=== PATIENT | female | born 1955 | race Caucasian/White ===

== ENCOUNTER 2019-09-24 15:21 | Outpatient (REF) | payer BC, SELFPAY ==
--- NOTE | 2019-09-24 09:50 | PAPNONF_PTH ---
PATIENT: Kalli Allen LOC: [facility] U#:[id number] AGE/SX: 63/F ROOM: RE09/24/[address]: Radha Sena : 1955 BED: DIS: 09/24/2019 SPEC #: [id number] RECD: 09/25/19 12:45 STATUS: LILLIANA REQ #: [id number] YUMIKO: 09/24/19 09:[address]: Radha Sena DEPT: [facility] Cytology RECD BY: Sondra Woo ENTERED: 09/25/19 12:45 SP TYPE: IGNACIO MCDOWELL DR: dEie Sanchez Tissues: 1 - BODY FLUID CYTO(NOT S/U/N/EM)[facility] Procedures: BODY FLUID CYTO(NOT SPU/UR/NIP/ENDOM)[facility] Comments: [id number] (TOTAL VOLUME = 20 ml's) (20 ml's URINE & 20 ml's CYTOLYT ADDED)
--- NOTE | 2019-09-24 10:15 | PAPFT_PTH ---
PATIENT: Kalli Allen LOC: [facility]#:[id number] AGE/SX: 63/F ROOM: RE09/24/[address]: Radha Sena : 1955 BED: DIS: 09/24/2019 SPEC #: [id number] RECD: 09/25/19 12:44 STATUS: LILLIANA RESasha #: [id number] YUMIKO: 09/24/19 10:[address]: Radha Sena DEPT: [facility] Cytology RECD BY: Sondra Woo ENTERED: 09/25/19 12:44 SP TYPE: PAPFT OTHR DR: Edie Sanchez Tissues: 1 - CX/ENDOCX FOR PAP SMEARS Procedures: PAP THIN PREP/[facility] Screening HPV DNA PROBE Comments: [id number]
[2019-09-24 19:47] LABS: Calculated LDL 196 mg/dL (<100); Cholesterol 303 mg/dL (<200); HDL Cholesterol 70 mg/dL (40-60); Triglyceride 187 mg/dL (<150)
[2019-09-24 19:52] LABS: Hemoglobin A1C 5.8 % (3.8-5.6)
== END 2019-09-24 15:41 ==
LOC: NCHCN 15:21
PROVIDERS: PCP Physician Assistant Medical; Visit Provider Nurse Practitioner Family
DX: R73.03 Prediabetes (principal); Z13.220 Encounter for screening for lipoid disorders; R31.9 Hematuria, unspecified; Z12.4 Encounter for screening for malignant neoplasm of cervix; Z11.51 Encounter for screening for human papillomavirus (HPV); R82.998 Other abnormal findings in urine
CPT/HCPCS: 80061; 88142; 83036; 87624; 88104

== ENCOUNTER 2020-09-08 12:00 | Outpatient (REF) | payer BC, SELFPAY ==
--- NOTE | 2020-09-08 15:45 | SKI_PTH ---
PATIENT: Kalli Allen LOC: [facility] U#:[id number] AGE/SX: 64/F ROOM: RE09/08/[address]: Shantell Benites : 1955 BED: DIS: 09/08/2020 SPEC #: [id number] RECD: 09/09/20 12:46 STATUS: LILLIANA REQ #: [id number] YUMIKO: 09/08/20 15:[address]: Shantell Benites DEPT: Surgical Specimen RECD BY: Sondra Woo ENTERED: 09/09/20 12:47 SP TYPE: DANNY MCDOWELL DR: Edie Sanchez Tissues: 1 - SKIN BIOPSY(SHAVE/PUNCH) Procedures: SKIN LEVEL 4 Comments: [id number]
== END 2020-09-08 12:01 | disposition home or self-care (01) ==
LOC: LBN 12:00
PROVIDERS: PCP Physician Assistant Medical; Visit Provider Physician Assistant
DX: L43.8 Other lichen planus (principal)
CPT/HCPCS: 88305

== ENCOUNTER 2020-09-27 18:42 | Outpatient (REF) | payer BC, SELFPAY ==
[2020-09-27 19:32] LABS: Hemoglobin A1C 5.8 % (<5.7)
[2020-09-27 19:34] LABS: ALT 76 U/L (14-59); AST 42 U/L (15-37); Alkaline Phosphatase 132 U/L (46-116); Anion Gap 11.6 mmol/L (3-11); BUN 14 mg/dL (7-18); Bilirubin, Total 0.7 mg/dL (0.2-1.0); CO2 24.4 mmol/L (21.0-32.0); Calcium 9.4 mg/dL (8.5-10.1); Calculated LDL 216 mg/dL (<100); Chloride 102 mmol/L (98-107); Cholesterol 315 mg/dL (<200); Estimated GFR 56.18 (mL/min/1.73m2); Glucose 104 mg/dL (74-106); HDL Cholesterol 67 mg/dL (40-60); Potassium 4.6 mmol/L (3.5-5.1); Sodium 138 mmol/L (136-145); Total Protein 7.1 g/dL (6.4-8.2); Triglyceride 160 mg/dL (<150)
== END 2020-09-27 18:43 | disposition home or self-care (01) ==
LOC: NCHCN 18:42
PROVIDERS: PCP Physician Assistant Medical; Visit Provider Nurse Practitioner Family
DX: E78.5 Hyperlipidemia, unspecified (principal); R73.03 Prediabetes; E66.9 Obesity, unspecified
CPT/HCPCS: 80053; 80061; 83036

== ENCOUNTER 2021-03-01 10:04 | Outpatient (REF) | payer BC, SELFPAY ==
[2021-03-01 20:48] LABS: COMMENT (LAB VIEW ONLY) 184.94 mg/dL; Microalb ug/mg Crea 5.9 ug/mg Cr
[2021-03-02 09:36] LABS: ALT 68 U/L (14-59); AST 35 U/L (15-37); Albumin 4.2 g/dL (3.4-5.0); Alkaline Phosphatase 121 U/L (46-116); Anion Gap 9.7 mmol/L (3-11); BUN 17 mg/dL (7-18); Bilirubin, Total 0.9 mg/dL (0.2-1.0); CO2 26.3 mmol/L (21.0-32.0); CREATININE 0.9 mg/dL (0.55-1.02); Calcium 9.2 mg/dL (8.5-10.1); Calculated LDL 77 mg/dL (<100); Chloride 102 mmol/L (98-107); Cholesterol 175 mg/dL (<200); Glucose 114 mg/dL (74-106); HDL Cholesterol 81 mg/dL (40-60); Potassium 4.4 mmol/L (3.5-5.1); Sodium 138 mmol/L (136-145); Triglyceride 86 mg/dL (<150)
== END 2021-03-01 10:05 | disposition home or self-care (01) ==
LOC: NCHCN 10:04
PROVIDERS: PCP Physician Assistant Medical; Visit Provider Nurse Practitioner Family
DX: E78.5 Hyperlipidemia, unspecified (principal); R73.03 Prediabetes
CPT/HCPCS: 80053; 80061; 82043; 82570

== ENCOUNTER 2022-06-15 16:00 | Outpatient (REF) | payer BC, SELFPAY ==
--- OUTSIDE RECORDS SUMMARY | 2022-06-15 16:02 | XMS_ITS | Continuity of Care Document ---
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 Name Role Phone Elizabeth Bullock Primary Care Physician Encounter [facility] Date(s): 01/18/22 - 01/18/[address] [address] Discharge Disposition: Home or Self Care Attending Physician: Elizabeth Bullock MOTOR MAN Admitting Physician: Elizabeth Bullock MOTOR MAN Referring Physician: Elizabeth Bullock MOTOR MAN Allergies, Adverse Reactions, Alerts Substance Reaction Severity Status FLUoxetine Itching Unknown Active Assessment and Plan Diagnostic Tests Pending * Hepatitis C Ab w/Rflx to HCV RNA PCR [facility] 01/18/22 Immunizations Given and Recorded Vaccine Date Status Refusal Reason SARS-CoV-2 (COVID-19) mRNA BNT-162b2 vax 02/03/21 Recorded SARS-CoV-2 (COVID-19) Ad26 vaccine 06/19/19 Record ed Results Laboratory List Name Date Comprehensive Metabolic Panel 01/18/22 Hemoglobin A1c 01/18/22 Lipid Panel 01/18/22 Most recent to oldest [Reference Range]: 1 BUN [7-18 mg/dL] 15 mg/dL (01/18/22 9:03 AM) Cholesterol Total [50-200 mg/dL] 315 mg/ dL *HI* (01/18/22 9:03 AM) LDL [0-130 mg/dL] 194 mg/dL *HI* (01/18/22 9:03 AM) Glucose Level [74-106 mg/dL] 126 mg/dL *HI* (01/18/22 9:03 AM) Potassium Level [3.5-5.1 mmol/L] 4.1 mmo l/L (01/18/22 9:03 AM) HDL [40-60 mg/dL] 82 mg/dL *HI* (01/18/22 9:03 AM) AST [15-37 unit/L] 31 unit/L (01/18/22 9:03 AM) ALT [16-63 unit/L] 47 unit/L (01/18/22 9:03 AM) Sodium Level [136-145 mmol/L] 136 mmol/L (01/18/22 9:03 AM) Triglycerides [0-150 mg/dL] 193 mg/dL *HI* (01/18/22 9:03 AM) Calcium Level [8.5-10.1 mg/dL] 9.4 mg/dL (01/18/22 9:03 AM) Albumin Level [3.4-5.0 g/dL] 4.1 g/dL (01/18/22 9:03 AM) Protein Total [6.4-8.2 g/dL] 7.6 g/dL (01/18/22 9:03 AM) Bilirubin Total [0.2-1.0 mg/dL] 0.8 mg/d L (01/18/22 9:03 AM) Alk Phos [46-146 unit/L] 114 unit/L (01/18/22 9:03 AM) CO2 [21-32 mmol/L] 27 mmol/L (01/18/22 9:03 AM) eGFR Non-AA [>=60] 68 (01/18/22 9:03 AM) eGFR AA [>=60] 68 (01/18/22 9:03 AM) Hemoglobin A1c [4.0-6.0 %] 5.5 % (01/18/22 9:03 AM) Chloride Level [98-107 mmol/L] 101 mmol/ L (01/18/22 9:03 AM) Creatinine Level [0.55-1.02 mg/dL] 0.94 mg/dL (01/18/22 9:03 AM) Anion Gap [8-16 mmol/L] 8 mmol/L (01/18/22 9:03 AM) Social History Social History Type Response Sex Female Patient Care team information Personnel Name: Elizabeth Bullock MOTOR MAN Address: Address: [address] [place] [phone] [place]
[2022-06-15 19:24] LABS: ALT 38 U/L (14-59); AST 29 U/L (15-37); Alkaline Phosphatase 110 U/L (46-116); Anion Gap 7.8 mmol/L (3-11); BUN 13 mg/dL (7-18); Bilirubin, Total 0.9 mg/dL (0.2-1.0); CO2 26.2 mmol/L (21.0-32.0); CREATININE 0.8 mg/dL (0.55-1.02); Calcium 9.4 mg/dL (8.5-10.1); Calculated LDL 85 mg/dL (<100); Chloride 103 mmol/L (98-107); Cholesterol 213 mg/dL (<200); Estimated GFR 82.23 (mL/min/1.73m2); Glucose 111 mg/dL (74-106); HDL Cholesterol 91 mg/dL (40-60); Potassium 4.1 mmol/L (3.5-5.1); Sodium 137 mmol/L (136-145); Total Protein 7.2 g/dL (6.4-8.2); Triglyceride 185 mg/dL (<150)
== END 2022-06-15 16:01 | disposition home or self-care (01) ==
LOC: NCHCN 16:00
PROVIDERS: PCP Physician Assistant Medical; Visit Provider Nurse Practitioner Family
DX: E78.5 Hyperlipidemia, unspecified (principal)
CPT/HCPCS: 80053; 80061

== ENCOUNTER 2023-12-10 13:45 | Outpatient (REF) | payer BC, MEDICARE, SELFPAY ==
[2023-12-10 20:29] LABS: Calculated LDL 66 mg/dL (<100); Cholesterol 172 mg/dL (<200); HDL Cholesterol 86 mg/dL (40-60); Triglyceride 104 mg/dL (<150)
== END 2023-12-10 13:46 | disposition home or self-care (01) ==
LOC: NCHCN 13:45
PROVIDERS: PCP Physician Assistant Medical; Visit Provider Nurse Practitioner Family
DX: E78.5 Hyperlipidemia, unspecified (principal)
CPT/HCPCS: 80061

== ENCOUNTER 2024-06-09 13:57 | Outpatient (REF) | payer BC, MEDICARE, SELFPAY ==
[2024-06-09 19:16] LABS: ALT 45 U/L (14-59); AST 35 U/L (15-37); Albumin 4.2 g/dL (3.4-5.0); Alkaline Phosphatase 102 U/L (46-116); Anion Gap 7.5 mmol/L (3-11); BUN 14 mg/dL (7-18); Bilirubin, Total 0.9 mg/dL (0.2-1.0); CO2 28.5 mmol/L (21.0-32.0); CREATININE 0.9 mg/dL (0.55-1.02); Calcium 9.7 mg/dL (8.5-10.1); Chloride 104 mmol/L (98-107); Estimated GFR 70.51 (mL/min/1.73m2); Glucose 112 mg/dL (74-106); Potassium 5.1 mmol/L (3.5-5.1); Sodium 140 mmol/L (136-145); Total Protein 7.5 g/dL (6.4-8.2)
== END 2024-06-09 13:58 | disposition home or self-care (01) ==
LOC: NCHCN 13:57
PROVIDERS: PCP Physician Assistant Medical; Visit Provider Nurse Practitioner Family
DX: E78.5 Hyperlipidemia, unspecified (principal)
CPT/HCPCS: 80053

== ENCOUNTER 2025-01-30 11:30 | Outpatient (CLI) | payer MEDICARE, SELFPAY ==
--- NOTE | 2025-01-30 09:41 | DI.RAD_ITS ---
Exam(s) XR KNEE RT 4V AP,LAT,IKER,PAT EXAM: XR KNEE RT 4V AP,LAT,IKER,PAT CLINICAL HISTORY: R knee pain. TECHNIQUE: 2D digital imaging was performed of the right knee. Four views obtained. Merchant, AP, lateral and PA tunnel views were obtained. COMPARISON: No exams were available for comparison FINDINGS: BONES: No acute fracture is present. No bony destructive lesion is seen. There is an enthesophyte at the superior patella. JOINTS: There is mild joint space narrowing and small osteophytes in the medial femoral tibial joint. There also small osteophytes seen at the posterior patella. There is a small joint effusion. SOFT TISSUE: Normal. IMPRESSION: Mild degenerative changes of the right knee. DATA REPOSITORY: RADIATION DOSE DELIVERED:
== END 2025-01-30 11:31 | disposition home or self-care (01) ==
LOC: DIORS 11:33
PROVIDERS: PCP Physician Assistant Medical; Referring Provider Physician Assistant Medical; Visit Provider Physician Assistant
DX: M17.11 Unilateral primary osteoarthritis, right knee (principal); M71.21 Synovial cyst of popliteal space [Baker], right knee; M25.561 Pain in right knee
CPT/HCPCS: 99203; 73564